=== PATIENT | female | born 2005 | race Caucasian/White ===

== ENCOUNTER 2024-04-06 10:28 | Day surgery (SDC) | payer OTHER, SELFPAY ==
[2024-04-03 12:08] VITALS: BMI 30.2
[2024-04-06] VITALS (9 sets, daily range): BP systolic 102–133; BP diastolic 62–85; PULSE 85–121; RESP 12–16; TEMP 36.6–37.1; O2SAT 97–100; BMI 30.2
--- NOTE | 2024-04-06 | PATH_ITS ---
[facility] Accession Number: [id number] No. of containers..01 Tissue . 01 Material submitted: . endometrium - ENDOMETRIAL CURRETTINGS . 01 Diagnosis: ENDOMETRIAL CURETTINGS: Portions of weakly proliferative endometrium with patchy regions of stromal breakdown; negative for endometrioid intraepithelial neoplasia or malignancy. Endometrial fragments demonstrate prominent vessels, suggestive of polyp, if clinical and imaging studies are concordant. Scant portions of myometrium; negative for significant atypia. [facility] 04/13/2024 1137 Local . 01 Electronically signed: . Anitra Su MD, Pathologist NPI- [id number] . 01 Gross description: . ENDOMETRIAL CURRETTINGS: Received in formalin are minute fragments of mucoid and hemorrhagic material measuring 3.0 x 3.0 x 0.2 cm in aggregate. Submitted in toto in 1 cassette. /SHAYY 04/11/2024 1801 Local . 01 Pathologist provided ICD-10: N80.9, T83.32XA . 01 CPT . 903495 Specimen Comment: A courtesy copy of this report has been sent to [phone] Performed at: [address] [facility] [address] [address], [place], [place] [id number] MD Ronni Santos MD Phone: [phone]
[2024-04-06] MEDS: LACTATED RINGERS 1,000 ML 42 ML IV (11:12)
[2024-04-06] MEDS: ACETAMINOPHEN 325 MG TABLET 975 MG PO (11:15)
[2024-04-06] MEDS: SCOPOLAMINE 1 PATCH TOP (11:35)
--- NOTE | 2024-04-06 12:29 | PM.GYNHP.1 ---
History of Present Illness History of Present Illness Reason for admission: pelvic pain Narrative: Zahra Galindo is a 18 year old female G0 with a known history of endometriosis, malpositioned Mirena IUD, and abnormal uterine bleeding. She presents today for Mirena IUD removal, diagnostic laparoscopy with excision of endometriosis, D and C hysteroscopy, and Kyleena IUD insertion. [facility] Medical History (Updated 04/03/24 @ 12:17 by Kiara Blue RN) Anxiety Chronic female pelvic pain Surgical History (Updated 04/03/24 @ 12:16 by Kiara Blue RN) History of gynecologic surgery (02/17/22) History of vulvar vestibulectomy (02/09/24) Social History household members: spouse Smoking Status: Never smoker alcohol intake: never Meds Home Medications and Allergies Home Medications Medication Instructions Recorded Confirmed Type duloxetine 30 mg capsule,delayed 30 mg PO DAILY 12/28/23 04/06/24 History release Allergies Allergy/AdvReac Type Severity Reaction Status Date / Time naltrexone Allergy Mild Hives Verified 03/29/24 13:24 Exam Vital Signs (past 8 hours): - 04/06/24 11:01 Temperature 98.2 F Pulse Rate 85 Respiratory Rate 16 Blood Pressure 102/69 Pulse Oximetry 97 Oxygen Delivery Method Room Air Oxygen Delivery Method Room Air Narrative Exam Narrative: HEENT: No thyromegaly, no anterior cervical or supraclavicular lymphadenopathy. Lungs:Clear to auscultation bilaterally, no wheezes. Cardiovascular: Regular rate and rhythm, no murmurs, rubs, or gallops. Abdomen: Well-healed laparoscopy scars. No hepatosplenomegaly. No masses palpable. External genitalia: Normal. Well-healed Vagina: Normal Cervix: Normal. Nulliparous Bimanual exam: 6 Week size anteverted uterus. Mobile. Extremities: No edema Assessment & Plan Assessment & Plan narrative: Assessment: 18-year-old 0 with known history of endometriosis diagnosed by laparoscopy, abnormal uterine bleeding, malpositioned Mirena IUD. Plan: Removal of Mirena IUD, diagnostic laparoscopy with excision of endometriosis, D&C hysteroscopy, placement of Kyleena IUD
--- NOTE | 2024-04-06 12:31 | PM.PREOP ---
Pre-operative Note Interval Note History & Physical reviewed/Exam performed by Physician: Yes Changes to H&P: No H&P completed within 30 days and has changed as indicated here:: 04/06/24
[2024-04-06] MEDS: CEFAZOLIN VIAL 2 GM in SODIUM CHLORIDE 0.9% 100 ML IV (13:22)
--- NOTE | 2024-04-06 13:51 | SUR.OPER ---
Lithotomy on padded OR bed, head on pillow, arms secured on padded arm boards at <90 degrees abduction. Legs secured in padded yellow fins stirrups.
[2024-04-06] MEDS: BUPIVACAINE 0.5% (PF) 30 ML, EPINEPHrine 0.15 MG INJ (13:59)
--- NOTE | 2024-04-06 14:28 | P.OP_ITS ---
Operative Date/Time/Diagnoses Date of procedure: 04/06/24 Time of procedure: 14:28 Pre-op diagnosis: Known history of endometriosis Malpositioned Mirena IUD Abnormal uterine bleeding Pelvic pain Post-op diagnosis: same Procedure & Clinicians Procedure: Procedures Operation Date: 04/06/24 12:00 Actual Procedure Side Surgeon p Hysteroscopy D&C Eloise Barker MD s Dx Laparoscopy with possible excision of endometriosis, IUD removal & placement of kyleena IUD Eloise Barker MD Mirena IUD removal, diagnostic laparoscopy, D&C hysteroscopy with MyoSure re section of endometrial tissue, Kyleena IUD insertion Indications: 18-year-old 0 with a known history of endometriosis with recurrent pain. Malpositioned IUD by ultrasound. Abnormal uterine bleeding. Surgeon: Eloise Barker Anesthesia Type: General and Local Operative Notes Findings: Seven week size anteverted uterus Normal tubes and ovaries Appendix previously removed Surgical clips visualized in the pelvis and at the distal cecum Normal liver and gallbladder Normal uterus No evidence of endometriosis in the anterior or posterior cul-de-sac No evidence of endometriosis on the tubes, ovaries, or in the ovarian fossa No evidence of endometriosis on the bladder or bowel Closure Type: primary Specimen(s): endometrial curettings Applied: catheter (in/out) Estimated blood loss (mL): 5 Blood products transfused: none Procedure in detail: After informed consent was obtained, the patient was taken to the operating room where she was placed in the dorsal supine position. After adequate general endotracheal anesthesia was achieved, she was placed in the dorsal lithotomy position, and prepped and draped in the usual sterile fashion. A time-out was performed. A bivalve speculum was placed into the vagina and the Mirena IUD strings were grasped with a ring forceps and was removed without difficulty. A single-tooth tenaculum was placed on the anterior lip of the cervix. The cervical os was sequentially dilated until the Zumi uterine manipulator could pass easily into the endometrial cavity. The single-tooth tenaculum was removed from the anterior lip of the cervix. The bivalve speculum was removed from the vagina. Attention was then turned to the abdomen where 6 cc of 0.5% Marcaine with epinephrine were injected in the umbilical fold. A 5 mm incision was made. The Veress needle was placed into the peritoneal cavity, and its placement confirmed by aspiration and drop test. The abdominal cavity was insufflated with 2.6 L of CO2. The Veress needle was removed, and a 5 mm trocar was placed without difficulty. A second incision was made 4 cm lateral to the umbilicus on the left side after 6 cc of 0.5% Marcaine with epinephrine were injected. A second 5 mm trocar was placed under direct visualization. Using the probe, the pelvis and abdomen were examined with the findings noted above. The instruments were removed from the abdomen. The CO2 was allowed to escape. The incisions were closed with 4-0 Monocryl in a subcuticular fashion. Steri-Strips and Allevyn dressings were placed. Attention was then turned to the vagina where the Zumi uterine manipulator was removed from the uterus. A single-tooth tenac ulum was placed on the anterior lip of the cervix after the bivalve speculum was placed into the vagina. The cervical os was sequentially dilated to the #8 Hegar dilator. The MyoSure hysteroscope pass easily into the endometrial cavity. Both fallopian tube ostia were observed. The MyoSure Lite was used to resect the thickened endometrial tissue. Cutting time 56 seconds. Pressure 80 mmHg. Total fluid volume 800 cc. Deficit 340 cc. The hysteroscope was removed from the uterus. The uterus was sounded to 7 cm. The Kyleena IUD was placed without difficulty. The strings were cut to 2 cm. The single-tooth tenaculum was removed from the anterior lip of the cervix. The bivalve speculum was removed from the vagina. Sponge, lap, and instrument counts were correct x2. The patient tolerated the procedure well, and was taken to PACU in stable condition. Complications: none Post-operative Condition: stable Disposition: PACU Plan for aftercare: Home after recovery
[2024-04-06] MEDS: METOCLOPRAMIDE 10 MG/2 ML INJ IV (15:18)
[2024-04-06] MEDS: OXYCODONE IR 5 MG TABLET PO ×2 (15:18→16:01)
[2024-04-06] MEDS: ONDANSETRON 4 MG/2 ML INJ IV (15:20)
== END 2024-04-06 16:05 | disposition home or self-care (01) ==
PROVIDERS: Referring Provider Obstetrics & Gynecology; Visit Provider Obstetrics & Gynecology
PROC: 0UDB8ZZ Extraction of Endometrium, Via Natural or Artificial Opening Endoscopic (ICD-10-PCS; CPT 58558; principal; 2024-04-06 12:00)
PROC: 0U5B4ZZ Destruction of Endometrium, Percutaneous Endoscopic Approach (ICD-10-PCS; CPT 58662; 2024-04-06 12:00)
DX: N93.8 Other specified abnormal uterine and vaginal bleeding (principal); Z30.433 Encounter for removal and reinsertion of intrauterine contraceptive device; T83.32XA Displacement of intrauterine contraceptive device, initial encounter
CPT/HCPCS: 58301; 58300; 49320; 58563; C1713; J0171; J0330; J0690; J1100; J1885; J2250; J2405; J2704; J2765; J3010; J3490; J7296

== ENCOUNTER → 2024-07-25 13:53 | Outpatient (CLI) | payer BC, SELFPAY ==
--- NOTE | 2024-07-25 13:54 | DI.US.S_ITS ---
PROCEDURE: US PELVIC COMPLETE INDICATIONS: Check IUD placement TECHNIQUE: Real-time scanning was performed of the pelvic organs, with image documentation. Additional endovaginal scanning was necessary due to incomplete visualization of the adnexal and endometrial structures by transabdominal scanning. COMPARISON: [facility], US, US PELVIC COMPLETE, 04/13/2024, 11:12. FINDINGS: Uterus: Uterus is anteverted and normal in size at 6.1 x 4.1 x 4.7 cm. The myometrium is homogeneous. The endometrium measures 10 mm combined thickness. Intrauterine device in good position Right and left ovaries appropriate in size, echotexture and vascularity Other: No pathologic free abdominal or pelvic fluid. IMPRESSION: Intrauterine device in good position Approved by: Alex Brito M.D. on 07/27/2024 at 17:35
== END ==
PROVIDERS: Referring Provider Obstetrics & Gynecology; Visit Provider Obstetrics & Gynecology
DX: N92.6 Irregular menstruation, unspecified (principal); Z97.5 Presence of (intrauterine) contraceptive device
CPT/HCPCS: 76830; 76856